=== PATIENT | female | born 2000 | race Caucasian/White ===

== ENCOUNTER 2019-08-31 05:37 | Inpatient (IN) | payer BC, MEDICAID ==
[2019-08-31] VITALS (775 sets, daily range): BP systolic 82–135; BP diastolic 44–80; PULSE 70–120; TEMP 97–98; O2SAT 62–100
[~2019-08-31] VITALS: Ht 165.1 cm; Wt 50.3 kg
[2019-08-31] MEDS ORDERED: AMOXICILLIN 25250 MG (05:58)
[2019-08-31 08:15] LABS: BASO % 0.5 % (0.0-2.0); GRAN # 6.3 (1.4-6.5); HEMOGLOBIN 12.9 g/dl (12.0-15.0); LYMPH # 1.9 (1.2-3.4); LYMPH % 21.7 % (20.0-51.0); MEAN CELL VOLUME 88 fl (80.0-95.0); MEAN CORPUSCULAR HEMOGLOBIN 31 pg (26.0-32.0); MEAN CORPUSCULAR HGB CONC 35 g/dl (33.0-37.0); MEAN PLATELET VOLUME 9.2 fl (7.4-10.4); MONO # 0.5 (0.1-0.6); MONO % 5.7 % (1.7-9.3); PLATELET COUNT 284 K/mm3 (130-400); RED BLOOD COUNT 4.21 M/mm3 (4.10-5.30); REDCELL DISTRIBUTION WIDTH-CV 11.7 % (11.5-14.5)
[2019-08-31 08:18] LABS: ALANINE AMINOTRANSFERASE 20 U/L (4-34); ALBUMIN 4.3 gm/dL (3.5-5.0); ALKALINE PHOSPHATASE 58 U/L (50-136); ANION GAP 9 mmol/L (7-16); AST,SGOT 39 U/L (15-37); BILIRUBIN,TOTAL 1.4 mg/dL (0.0-1.0); BLOOD UREA NITROGEN 12 mg/dL (7-17); CARBON DIOXIDE 23 mmol/L (22-30); CHLORIDE 107 mmol/L (98-107); CREATININE, serum 0.63 (0.52-1.25); GLUCOSE 87 mg/dL (74-106); POTASSIUM 3.9 mmol/L (3.4-5.0); SODIUM 139 mmol/L (137-145); TOTAL PROTEIN 7.8 gm/dL (6.4-8.2)
[2019-08-31 08:19] LABS: ACETAMINOPHEN < 10 ug/mL (10-30); SALICYLATE < 1.0 mg/dL
[2019-08-31 08:20] LABS: HEMATOCRIT 36.9 % (35.0-45.0)
[2019-08-31 08:34] LABS: PROLACTIN 21.9 ng/mL (3.0-18.6)
--- NOTE | 2019-08-31 14:15 | NUR ---
HR 140s RN to room, pt exhibiting generalized myoclonic jerking, right arm pulled in toward midline with forearm flexed upward making circular motions with fa and hand, hypertonicity of extrmety noted. Eyes open gaze midline, eyelids with rhythmic twitch, SPO2 per monitor decreased in low 70s, placed on 15L oxygen. Hospitalist notified. 2mg versed given IVP following event, pt gaze is deviated to right and is not responsive to voice or pain. Placed on right side.
--- NOTE | 2019-08-31 14:30 | NUR ---
Pt again exhibits seizure activity, SPO2 briefly mid 80s returns to 100% following 2nd dose of IV Versed. [facility] staff updated with history and current situation, [facility] staff available if issues arise. Gown and linen changed following episode of urinary incontinence.
--- NOTE | 2019-08-31 21:12 | NUR ---
Chanel Rios APRN notified of BP at 82/44. She ordered to bolus 1L NS over an hour and let her know how her blood pressure is doing. Will continue to monitor patient.
[2019-09-01] VITALS (959 sets, daily range): BP systolic 86–131; BP diastolic 46–83; PULSE 67–104; TEMP 98.2–98.5; O2SAT 47–100
--- NOTE | 2019-09-01 00:43 | NUR ---
Patient's blood pressure noted to be 79/34. Chanel Rios APRN updated and increased fluids to 150ml/hr and to recheck BP in 15 minutes. Patient is sleeping soundly at this time. BP recheck is 83/33. Patient continues to sleep well. Patient up around 2230 to void. Voided about 600ml. Heart rate remains stable in the 80s. Will continue to monitor.
[2019-09-01 04:30] LABS: COLLECTION METHOD CLEAN CATCH
[2019-09-01 04:38] LABS: MUCOUS Present /lpf; PH 5 (5-8); URINE APPEARANCE Clear; URINE BACTERIA Rare /hpf; URINE BILIRUBIN Negative (NEGATIVE); URINE BLOOD Negative (NEGATIVE); URINE COLOR Yellow; URINE GLUCOSE Negative (NEGATIVE); URINE KETONE 1+ (NEGATIVE); URINE LEUKOCYTE ESTERASE Negative (NEGATIVE); URINE NITRATE Negative (NEGATIVE); URINE PROTEIN(semi-quant) Negative (NEGATIVE); URINE RBC 0-2 /hpf; URINE UROBILINOGEN Negative (NEGATIVE)
[2019-09-01 05:40] LABS: BASO % 0.4 % (0.0-2.0); GRAN # 4.7 (1.4-6.5); GRAN % 65.2 % (42.2-75.2); HEMOGLOBIN 11.5 g/dl (12.0-15.0); LYMPH # 2.2 (1.2-3.4); MEAN CELL VOLUME 91 fl (80.0-95.0); MEAN CORPUSCULAR HEMOGLOBIN 31 pg (26.0-32.0); MEAN CORPUSCULAR HGB CONC 33 g/dl (33.0-37.0); MEAN PLATELET VOLUME 8.9 fl (7.4-10.4); MONO # 0.3 (0.1-0.6); MONO % 4.1 % (1.7-9.3); PLATELET COUNT 214 K/mm3 (130-400); RED BLOOD COUNT 3.77 M/mm3 (4.10-5.30); REDCELL DISTRIBUTION WIDTH-CV 11.6 % (11.5-14.5)
[2019-09-01 05:44] LABS: HEMATOCRIT 34.4 % (35.0-45.0)
[2019-09-01 05:50] LABS: ALBUMIN 3.5 gm/dL (3.5-5.0); BILIRUBIN,TOTAL 1.4 mg/dL (0.0-1.0); CALCIUM 8.4 mg/dL (8.4-10.2); CREATININE, serum 0.57 (0.52-1.25); POTASSIUM 3.8 mmol/L (3.4-5.0); TOTAL PROTEIN 6.5 gm/dL (6.4-8.2)
--- NOTE | 2019-09-01 06:38 | NUR ---
At about 0450 this nurse noted that patient's heart rate was increased. Upon assessing the patient her left arm noted to be contracted in towards her body and patient's eyes were deviated to the right. Patient was unresponsive to stimuli. Oxygen via oxymask was administered and patient was already on her right side. Charge nurse, Missy, was with patient while this nurse went to get PRN Versed. At 0458 patient stopped seizing. Chanel Rios APRN at bedside at this time. PRN Versed administered per orders. At 0459 patient began seizing again and her left arm was tight, but extended out from her body with her fist clenched. Patient again unresponsive and eyes deviated to the right. Second seizure lasted from 0459 till 0501. After seizure activity was over, patient's heart rate decreased to within normal limits. Patient remains postictal and mostly unresponsive. Patient does turn her head to verbal stimuli, and grimaces with pain. Oxymaks remains in place d/t slow, shallow breathing. Mother updated via phone call this morning. Will report off to day shift nurse.
--- NOTE | 2019-09-01 11:09 | NUR ---
Patient transfered to MRI via wheelchair with tech and RN at side. 1138 Patient on MRI table, noted to have left arm stiff and straight up in air. RN and tech in with patient, turned on side. Has rhythmic ticking notion to arms and head, unable to answer questions. PRN Versed given. Will monitor.
--- NOTE | 2019-09-01 11:12 | NUR ---
SW met with the patient to discuss discharge plan. The patient appeared sleepy and spoke softly. SW had a difficult time understanding the patient. SW then contacted the patient's father, Herber, (ph#[phone]), to discuss discharge plan. The patient lives in [place] with her father and sister. Herber reports that the patient is independent with ADLs and does not have any DME. Herber reports that the patient was going to [facility], but took a break, due to all her seizures. He states that that she has more seizures when she is stressed. The patient's PCP is Dr. Chapin Torres and she receives her medications at [facility]. Herber reports no difficulties obtaining her meds. She sees Gaby Finney councelor in [place] for her mental health. Herber reports that he has no concerns about the patient returning back home with them upon discharge. SW to continue to follow.
--- NOTE | 2019-09-01 12:09 | NUR ---
Unable to finish last sequence of MRI. RN and tech have attempting multiple times to redirect patient to lay on back and lay still while in MRI scanner.
--- NOTE | 2019-09-01 12:15 | NUR ---
Upon return to ICU, Dr. Dobbins notified of seizure and inability to finish MRI. No new orders at this time.
--- NOTE | 2019-09-01 14:23 | NUR ---
EEG NOT COMPLETED DUE TO PATIENT CONTINUING TO HAVE SEIZURES. REJI BALTAZAR, FISHING MANAGER
--- NOTE | 2019-09-01 19:05 | NUR ---
RECEIVED REPORT FROM HARVEY MAGANA. PT VERY SLEEPY AT THIS TIME AND BARELY AROUSES TO VERBAL STIMULI BUT DOES AROUSE BUT FALLS BACK TO SLEEP EASILY. ABLE TO FOLLOW SOME SIMPLE COMMANDS. VSS. PT ON RA.
--- NOTE | 2019-09-01 20:45 | NUR ---
MONA BEAVERS, MACHINE ROOM ENGINEER TO BEDSIDE FOR INTUBATION. BOB, FATHER, NOTIFIED OF INTUABTION BE RN AND NIKITA, QUE, DOUBLE NURSE VERIFICATION CONSENT ON CHART WITH RN AND GAS APPLIANCE INSTALLER,RN. EDUCATED FATHER THAT PT WAS NOT ABLE TO PROTECT HER AIRWAY WITH THE LAST SEIZURE THIS EVENING AND THAT THE INTUBATION IS TO HELP PROTECT HER AIRWAY FOR TRASNFER TO AND HELP TO POTENTIALLY PREVENT SEIZURE WITH SEDATION MEDICATION. P TINTUBATED AT 2050 WITH ETT 7.5, 21 AT THE LIP. XRAY TO BEDSIDE AFTER OGT IN PLACE AT 57CM AT THE LIP FOR VERIFICATION. RT PLACED PT ON BEDSIDE VENT OF FIO2 50%, TV 350, PEEP 5, RATE 16. FC PLACED, SEE INTERVENTION. SEE MAR FOR SEDATION MEDICATION. PT TOLERATED WELL. MANAGER APPLIED RESTRAINTS IN PLACE AT 2106, SEE INTERVENTION. AWAITING FOR BED ASSIGNEMTN FROM FOR TRANSFER.
--- NOTE | 2019-09-01 21:15 | NUR ---
QUE SHELTON AT BEDSIDE FOR ASSESSMENT POST INTUBATION.
--- NOTE | 2019-09-01 21:20 | NUR ---
PT WAS INTUBATED FOR AIRWAY PROTECTION PRIOR TO TRANSFER TO [facility] FOR FURTHER EVALUATION OF SEIZURE DISORDER. SETTINGS LISTED ARE SETTINGS GIVEN BY VERBAL ORDER FROM TOMMY SHELTON APRN. INTUBATION WENT WITHOUT INCIDENT.
--- NOTE | 2019-09-01 21:28 | NUR ---
REPORT GIVEN TO HARVEY PAN. AT . JAE PATTERSONAR FOR TRANSFER TO TO ROOM CA 5100.
--- NOTE | 2019-09-01 21:54 | NUR ---
LIFESTAR AT BEDSIDE. REPORT GIVEN TO SONNY [facility] CARE DIRECTOR. PT TRASNFERRED TO THEIR EQUIPMENT AND VENT. PT OUT OF UNIT AT 2216. FATHER, BOB, UPDATED ON PT LEAVING FACILITY AT 2244, ALL QUESTIONS ANSWERED AT THIS TIME. ALL PERSONAL BELONGINGS SENT WITH PT.
== END 2019-09-01 22:15 | DRG 101 ==
LOC: COL.ER 05:37 → EDBD 05:39 → COL.ER 05:39 → ICU 08:44
PROVIDERS: Emergency Medicine; Nurse Practitioner Family; Physician Assistant; ADMIT Family Medicine
DX: G40.901 Epilepsy, unspecified, not intractable, with status epilepticus (principal); Z91.14 Patient's other noncompliance with medication regimen
CPT/HCPCS: 99233-AI; 99239; A9585; C9254; J1953; J2250; J2704; J7030